=== PATIENT | female | born 1950 | race Hispanic/Latino ===

== ENCOUNTER → 2024-04-10 | Outpatient (CLI) | payer MEDICARE ==
[~2024-04-10] MED LIST: IOHEXOL 350 MG/ML 100ML INFUS..BTL IV ONE
[2024-04-10] MEDS: 0.9%NACL 1000ML 1,000 ML IV ONE (10:45)
[2024-04-10 10:48] VITALS: BP 160/80; PULSE 66; RESP 18; TEMP 97.1
[2024-04-10 10:55] LABS: CREATININE 0.9 mg/dL (0.5-1.0); POTASSIUM 3.9 mmol/L (3.5-5.1)
[2024-04-10 11:35] VITALS: BP 136/60; PULSE 66; RESP 18; TEMP 98.2
[2024-04-10 13:29] VITALS: BP 153/73; PULSE 73; RESP 18; TEMP 98.1
== END | disposition home or self-care (01) ==
LOC: DAH 08:36 → EDSTATUS 10:00 → RAH 10:00 → DAH 10:19
PROVIDERS: ATTEND Student in an Organized Health Care Education/Training Program
DX: R07.89 Other chest pain (principal); I10 Essential (primary) hypertension; E78.2 Mixed hyperlipidemia; I25.10 Atherosclerotic heart disease of native coronary artery without angina pectoris; R06.02 Shortness of breath; R60.0 Localized edema; Z90.49 Acquired absence of other specified parts of digestive tract; Z90.710 Acquired absence of both cervix and uterus; Z98.42 Cataract extraction status, left eye; Z98.41 Cataract extraction status, right eye; Z95.1 Presence of aortocoronary bypass graft; Z79.82 Long term (current) use of aspirin; Z79.899 Other long term (current) drug therapy
CPT/HCPCS: 75574; 80048; 36415; J7030; Q9967